=== PATIENT | female | born 1990 | race Caucasian/White ===

== ENCOUNTER 2018-10-01 11:13 | Outpatient (CLI) | payer OTHER ==
--- NOTE | 2018-10-01 11:46 | RAD ---
EXAM: Lumbar spine 3 views: HISTORY: Low back pain COMPARISON: None FINDINGS: No evidence for acute fracture or dislocation or significant acute process. No evidence for significant malalignment. Disc spaces are actually preserved. No evidence for a focal bone lesion. IMPRESSION: Unremarkable spine.
== END 2018-10-01 11:14 | disposition home or self-care (01) ==
LOC: SCSRAD 11:13
PROVIDERS: ATTEND Family Medicine
DX: M54.5 Low back pain (principal)
CPT/HCPCS: 72100

== ENCOUNTER 2019-08-17 12:26 | Emergency (ER) | payer SELFPAY ==
[2019-08-17] MEDS ORDERED: Morphine 4 MG/ML VIAL ONE (13:28)
[2019-08-17] MEDS ORDERED: Ondansetron PF 4 MG/2 ML Vial ONE (13:28)
[2019-08-17 13:30] LABS: #Basophils 0.1 thou/uL (0.0-0.2); #Eosinphils 0.3 thou/uL (0.0-0.7); #Lymphocytes 4.1 thou/uL (1.20-3.40); #Monocytes 0.7 thou/uL (0.11-0.59); #Neutrophils 6.9 thou/uL (1.40-6.50); %Basophils 0.8 % (0.0-1.0); %Eosinophils 2.3 % (0.0-10.0); %Lymphocytes 33.8 % (21.0-51.0); %Monocytes 5.5 % (0.0-10.0); %Neutrophils 57.6 % (42.0-75.0); Mean Corpuscular HGB CONC 32.3 g/dL (32.0-36.0); Mean Corpuscular Volume 86.9 fL (78.0-98.0); Mean Platelet Volume 7.9 fL (7.4-10.4); Platelet Count 354 thou/uL (130-400); RBC Distribution Width 11.8 % (11.5-14.5); Red Blood Cell (RBC) Count 4.98 mill/uL (4.20-5.40)
[2019-08-17 13:35] LABS: BHCG - Serum Negative (NEGATIVE); Pregs Control Background? CLEAR/WHITE (CLR/WHITE); Pregs Control Bar Appear? YES (CONTROL BAR)
[2019-08-17 13:57] LABS: ALT (SGPT) 28 U/L (8-55); AST (SGOT) 21 U/L (5-34); Albumin 4.3 g/dL (3.5-5.0); Alkaline Phosphatase 83 U/L (40-110); Anion Gap 11 mmol/L (10-20); BUN (Urea Nitrogen) 10 mg/dL (7.0-18.7); Bilirubin, Total 0.4 mg/dL (0.2-1.2); Calc. Creatinine Clearance 0 mL/min (70-130); Calcium 9.6 mg/dL (7.8-10.44); Carbon Dioxide 25 mmol/L (22-29); Chloride 107 mmol/L (98-107); Estimated GFR-MDRD 57; Globulin 3.1 g/dL (2.4-3.5); Glucose 86 mg/dL (70-105); Lipase 11 U/L (8-78); Potassium 3.9 mmol/L (3.5-5.1); Protein, Total 7.4 g/dL (6.0-8.3); Sodium 139 mmol/L (136-145)
[2019-08-17 13:59] LABS: Bilirubin Negative (Negative); Blood, Urine Negative (Negative); Clarity Clear (Clear); Glucose, Urine (Dipstick) Normal (Negative); Leukocyte Negative Leu/uL (Negative); Nitrite Negative (Negative); Protein, Urine (Dipstick) Negative (Neg-Trace); Urobilinogen Normal mg/dL (Less than 2)
--- NOTE | 2019-08-17 14:46 | CT ---
CT ABDOMEN AND PELVIS PERFORMED WITH IV CONTRAST ENHANCEMENT: Date: 08/17/2019 HISTORY: Abdominal pain, onset a week ago. Pain radiates to the left side of the back and flank region. FINDINGS: Lung bases are clear of any infiltrative process. The liver, spleen, pancreas, and gallbladder regions all appear unremarkable. Right and left adrenal glands, and right and left kidneys are normal in size. No obstruction. No donna l calculi. No evidence for pyelonephritis. No significant periaortic or mesenteric adenopathy. CT of pelvis performed with contrast enhancement. The appendix is normal. No adenopathy or mass or fr ee fluid demonstrated. No inflammatory process. No significant bony findings. IMPRESSION: No acute findings of the abdomen or pelvis. POS: [facility]
== END 2019-08-17 15:16 | disposition home or self-care (01) ==
LOC: ERS 12:26
DX: R10.84 Generalized abdominal pain (principal); R11.0 Nausea; F41.9 Anxiety disorder, unspecified; F32.9 Major depressive disorder, single episode, unspecified; F43.10 Post-traumatic stress disorder, unspecified; E66.9 Obesity, unspecified; Z79.899 Other long term (current) drug therapy
CPT/HCPCS: 74177; 80053; 81003; 83690; 84703; 85025; 96361; 96374; 96375; J2270; J2405

== ENCOUNTER 2021-11-18 12:50 | Outpatient (CLI) | payer OTHER | END 2021-11-18 12:51 | disposition home or self-care (01) | LOC: LABBT 12:50 | PROVIDERS: ATTEND Anesthesiology Pain Medicine | DX: Z20.822 Contact with and (suspected) exposure to COVID-19 (principal) | CPT/HCPCS: U0003; U0005 ==

== ENCOUNTER 2021-11-21 07:16 | Day surgery (SDC) | payer OTHER ==
[2021-11-19 12:20] VITALS: BMI 38.0
[2021-11-21] MEDS ORDERED: Ondansetron PF 4 MG/2 ML Vial ONE ×2 (09:05→09:32)
[2021-11-21] MEDS ORDERED: fentaNYL Citrate/PF 100 MCG/2 ML SYRINGE ONE (09:05)
[2021-11-21] MEDS ORDERED: Propofol 500 MG/50 ML VIAL ONE ×2 (09:05→09:19)
[2021-11-21] MEDS ORDERED: EPINEPHrine 1 MG/ML AMP ONE (09:07)
[2021-11-21] MEDS ORDERED: Bupivacaine 0.25% HCL 30 ML VIAL ONE (09:07)
[2021-11-21] MEDS ORDERED: Lidocaine 2% PF 5 ML VIAL ONE (09:07)
[2021-11-21] MEDS ORDERED: Sodium Chloride 0.9% 100 ML ONE (09:16)
[2021-11-21] MEDS ORDERED: CEFAZOLIN 2 GM VIAL ONE (09:16)
[2021-11-21] MEDS ORDERED: Midazolam HCl 2 mg/2 ml Vial ONE (09:19)
[2021-11-21] MEDS ORDERED: PROPOFOL 200 MG/20 ML VIAL ONE (09:32)
[2021-11-21] MEDS ORDERED: Meperidine HCl/PF 25 MG/ML VIAL ONE (10:56)
== END 2021-11-21 12:30 | disposition home or self-care (01) ==
LOC: SDC 07:16
PROVIDERS: ATTEND Anesthesiology Pain Medicine
PROC: 0JH70DZ Insertion of Multiple Array Stimulator Generator into Back Subcutaneous Tissue and Fascia, Open Approach (ICD-10-PCS; principal; 2021-11-21)
PROC: 00HU3MZ Insertion of Neurostimulator Lead into Spinal Canal, Percutaneous Approach (ICD-10-PCS; principal; 2021-11-21)
DX: M96.1 Postlaminectomy syndrome, not elsewhere classified (principal); G89.4 Chronic pain syndrome; M47.26 Other spondylosis with radiculopathy, lumbar region; Z79.899 Other long term (current) drug therapy; Z91.013 Allergy to seafood
CPT/HCPCS: 72020; 76000; C1778; C1787; J0171; J2001; J2175; J2250; J2405; J2704; J3490; L8689; S0020

== ENCOUNTER 2022-11-26 08:21 | Day surgery (SDC) | payer OTHER ==
[2022-11-24 08:05] VITALS: BMI 39.5
[2022-11-26] MEDS ORDERED: Bupivacaine HCl 0.5%/Epinephrine 1:200,000/PF 30 ml Vial ONE (08:56)
[2022-11-26] MEDS ORDERED: Thrombin 5000 UNITS/5 ML VIAL ONE (08:56)
[2022-11-26] MEDS ORDERED: Sodium Chloride 0.9% 100 ML ONE ×2 (09:52→13:52)
[2022-11-26] MEDS ORDERED: CEFAZOLIN 2 GM VIAL ONE ×2 (09:52→13:52)
[2022-11-26] MEDS ORDERED: fentaNYL PF 100 MCG/2 ML SYRINGE ONE (10:05)
[2022-11-26] MEDS ORDERED: PROPOFOL 200 MG/20 ML VIAL ONE (10:23)
[2022-11-26] MEDS ORDERED: Lidocaine 1% PF 5 ML VIAL ONE (10:23)
[2022-11-26] MEDS ORDERED: Rocuronium Bromide 10 MG/ML (10ML VIAL) ONE (10:23)
[2022-11-26] MEDS ORDERED: Ondansetron PF 4 MG/2 ML Vial ONE (10:23)
[2022-11-26] MEDS ORDERED: Ketorolac Tromethamine 30 MG/ML VIAL ONE (10:23)
[2022-11-26] MEDS ORDERED: Dexamethasone 20 MG/5 ML VIAL ONE (10:23)
[2022-11-26] MEDS ORDERED: HYDROcodone/Acetaminophen 5/325 mg Tablet ONE (13:53)
== END 2022-11-26 14:55 | disposition home or self-care (01) ==
LOC: SDC 08:21
PROVIDERS: ATTEND Neurological Surgery
PROC: 00PV0MZ Removal of Neurostimulator Lead from Spinal Cord, Open Approach (ICD-10-PCS; principal; 2022-11-26)
PROC: 00JU0ZZ Inspection of Spinal Canal, Open Approach (ICD-10-PCS; principal; 2022-11-26)
DX: T85.192A Other mechanical complication of implanted electronic neurostimulator of spinal cord electrode (lead), initial encounter (principal); G89.4 Chronic pain syndrome; Z98.84 Bariatric surgery status; Z90.89 Acquired absence of other organs; Z91.013 Allergy to seafood
CPT/HCPCS: C1778; J1100; J1885; J2405; J2704; J3490

== ENCOUNTER 2023-06-27 13:49 | Observation (INO) | payer OTHER ==
[~2023-06-27 13:49] MED LIST: Iopamidol-370 76% 500 ML MDV (1 ML CHARGE) ONE
[2023-06-27 14:28] LABS: #Basophils 0.1 thou/uL (0.0-0.2); #Eosinphils 0.3 thou/uL (0.0-0.7); #Monocytes 0.8 thou/uL (0.11-0.59); #Neutrophils 5.9 thou/uL (1.40-6.50); %Basophils 0.7 % (0.0-1.0); %Eosinophils 2.4 % (0.0-10.0); %Lymphocytes 38.6 % (21.0-51.0); Hematocrit 41.2 % (36.0-47.0); Hemoglobin 13.3 g/dL (12.0-16.0); Mean Corpuscular HGB CONC 32.3 g/dL (32.0-36.0); Mean Corpuscular Hemoglobin 28.5 pg (27.0-31.0); Mean Corpuscular Volume 88.2 fl (78.0-98.0); Mean Platelet Volume 9.5 fL (7.4-10.4); Platelet Count 335 10x3/uL (130-400); RBC Distribution Width 12.3 % (11.5-14.5); Red Blood Cell (RBC) Count 4.67 mill/uL (4.20-5.40); White Blood Cell (WBC) Count 11.5 10x3/uL (4.8-10.8)
[2023-06-27] MEDS ORDERED: diphenhydrAMINE 50 MG/ML VIAL ONE (14:42)
[2023-06-27] MEDS ORDERED: Acetaminophen 500 MG TAB ONE (14:42)
[2023-06-27] MEDS ORDERED: Metoclopramide HCl 10 MG (2 mL) VIAL ONE (14:43)
[2023-06-27] MEDS ORDERED: Aspirin Chewable 81 MG TAB ONE (14:43)
[2023-06-27 14:44] LABS: BHCG - Serum Negative (NEGATIVE); Pregs Control Background? CLEAR/WHITE (CLR/WHITE); Pregs Control Bar Appear? YES (CONTROL BAR)
[2023-06-27 14:53] LABS: ALT (SGPT) 16 U/L (8-55); AST (SGOT) 13 U/L (5-34); Albumin 3.7 g/dL (3.5-5.0); Alkaline Phosphatase 67 U/L (40-110); Anion Gap 13 mmol/L (10-20); BUN (Urea Nitrogen) 9 mg/dL (7.0-18.7); Bilirubin, Total 0.4 mg/dL (0.2-1.2); Calc. Creatinine Clearance 0 mL/min (70-130); Calcium 8.9 mg/dL (7.8-10.44); Carbon Dioxide 23 mmol/L (22-29); Chloride 106 mmol/L (98-107); Estimated GFR 77; Globulin 2.8 g/dL (2.4-3.5); Glucose 72 mg/dL (70-105); Protein, Total 6.5 g/dL (6.0-8.3); Sodium 138 mmol/L (136-145)
[2023-06-27 14:57] LABS: Troponin I Less than 0.010 ng/mL (< 0.028)
[2023-06-27 16:12] LABS: Amphetamine Not Detected (NotDetected); Barbiturates Screen Not Detected (NotDetected); Benzodiazepine Screen Not Detected (NotDetected); Cocaine Metabolite Screen Not Detected (NotDetected); Methadone Not Detected (NotDetected); Methamphetamine Not Detected (NotDetected); Opiate Screen Not Detected (NotDetected); Oxycodone Screen Not Detected (NotDetected); Phencyclidine (PCP) Not Detected (NotDetected); THC/Cannabinoid Screen Not Detected (NotDetected); Tricyclic Screen Not Detected (NotDetected)
[2023-06-27] MEDS ORDERED: Acetaminophen 325 MG TAB PO PRN (16:27)
[2023-06-27] MEDS ORDERED: Sodium Chloride 0.9% 1,000 ML IV SCH (16:30)
[2023-06-27] MEDS ORDERED: Sodium Chloride 0.9% 500 ML IV SCH (17:00)
[2023-06-27 19:57] LABS: Troponin I 0.012 ng/mL (< 0.028)
[2023-06-27 20:08] VITALS: BMI 42.3
[2023-06-27] MEDS: Famotidine 20 MG TAB PO SCH (20:48)
[2023-06-27] MEDS ORDERED: Rosuvastatin 20 MG TAB PO SCH (21:00)
[2023-06-27 22:29] LABS: Troponin I Less than 0.010 ng/mL (< 0.028)
[2023-06-28 05:28] LABS: #Basophils 0.1 thou/uL (0.0-0.2); #Eosinphils 0.3 thou/uL (0.0-0.7); #Monocytes 0.9 thou/uL (0.11-0.59); #Neutrophils 6.7 thou/uL (1.40-6.50); %Basophils 0.7 % (0.0-1.0); %Eosinophils 2.6 % (0.0-10.0); %Lymphocytes 34.5 % (21.0-51.0); %Neutrophils 54.9 % (42.0-75.0); Hemoglobin 12.7 g/dL (12.0-16.0); Mean Corpuscular HGB CONC 32.6 g/dL (32.0-36.0); Mean Corpuscular Hemoglobin 28.7 pg (27.0-31.0); Mean Platelet Volume 9.6 fL (7.4-10.4); Platelet Count 317 10x3/uL (130-400); RBC Distribution Width 12.3 % (11.5-14.5); Red Blood Cell (RBC) Count 4.43 mill/uL (4.20-5.40); White Blood Cell (WBC) Count 12.2 10x3/uL (4.8-10.8)
[2023-06-28 05:34] LABS: Bacteria/HPF 2+ HPF (None Seen); Bilirubin Negative (Negative); Blood, Urine Negative (Negative); Clarity Clear (Clear); Glucose, Urine (Dipstick) Normal (Negative); Ketone, Urine Negative (Negative); Leukocyte Negative Leu/uL (Negative); Nitrite Negative (Negative); Protein, Urine (Dipstick) Negative (Neg-Trace); Specific Gravity, Urine 1.023 (1.002-1.036); Squamous Epithelial 0-3 HPF (0-3); Urobilinogen Normal mg/dL (Less than 2); WBC/HPF 0-3 HPF (0-3); pH, Urine 6.5 (5.0-9.0)
[2023-06-28 05:57] LABS: Anion Gap 12 mmol/L (10-20); BUN (Urea Nitrogen) 9 mg/dL (7.0-18.7); Calc. Creatinine Clearance 163 mL/min (70-130); Calcium 8.5 mg/dL (7.8-10.44); Carbon Dioxide 24 mmol/L (22-29); Cardiac Risk 3.4 (Less than 4.5); Chloride 109 mmol/L (98-107); Cholesterol 117 mg/dl (< 200 Desired); Estimated GFR 79; Glucose 86 mg/dL (70-105); HDL Cholesterol 34 mg/dL (>60 Neg Risk); LDL Cholesterol, Calculated 61 mg/dL; Sodium 141 mmol/L (136-145); Triglycerides 112 mg/dL (Less than 150)
[2023-06-28] MEDS: Famotidine 20 MG TAB PO SCH (08:33)
[2023-06-28] MEDS ORDERED: Aspirin 325 mg Enteric Coated Tablet PO SCH (09:00)
[2023-06-28] MEDS ORDERED: Enoxaparin 40 MG (0.4 mL) SYRINGE SC SCH (09:00)
[2023-06-28] MEDS ORDERED: Aspirin 81 mg Enteric Coated Tablet PO SCH (09:00)
[2023-06-28] MEDS ORDERED: BuPROPion XL 150 MG ER.TAB PO SCH (09:00)
[2023-06-28 15:50] VITALS: BP 103/59; TEMP 98.9
[2023-06-28] MEDS ORDERED: Loratadine 10 MG TAB PO SCH (21:00)
[2023-06-28] MEDS ORDERED: QUEtiapine 25 MG TAB PO SCH (21:00)
== END 2023-06-28 18:26 | disposition home or self-care (01) ==
LOC: ERS 13:49 → 2SW 15:49
PROVIDERS: ADMIT Internal Medicine; ATTEND Internal Medicine
PROC: B24BZZZ Ultrasonography of Heart with Aorta (ICD-10-PCS; principal; 2023-06-28)
DX: R53.1 Weakness (principal); F32.A Depression, unspecified; M54.9 Dorsalgia, unspecified; D72.829 Elevated white blood cell count, unspecified; G89.29 Other chronic pain; E66.01 Morbid (severe) obesity due to excess calories; F41.9 Anxiety disorder, unspecified; F43.10 Post-traumatic stress disorder, unspecified; R74.01 Elevation of levels of liver transaminase levels; R51.9 Headache, unspecified; Z68.41 Body mass index [BMI] 40.0-44.9, adult; Z79.899 Other long term (current) drug therapy; Z79.82 Long term (current) use of aspirin; Z91.013 Allergy to seafood; Z90.89 Acquired absence of other organs; Z98.890 Other specified postprocedural states
CPT/HCPCS: 36415; 36416; 70450; 70496; 70498; 70551; 80048; 80053; 80061; 80306; 81001; 84439; 84443; 84484; 84703; 85025; 93005; 93306; 96365; 96375; 99285; G0378; J1200; J2765; J7050; Q9967